=== PATIENT | male | born 1990 | race Caucasian/White ===

== ENCOUNTER 2025-09-01 16:27 | Emergency (ER) | payer OTHER ==
[~2025-09-01] VITALS: Ht 170.2 cm; Wt 61.2 kg
[2025-09-01] MEDS ORDERED: IV NORMAL SALINE 1000 ML BAG IV ONE (16:45)
[2025-09-01 17:00] VITALS: BP 139/87
[2025-09-01 17:26] VITALS: BP 139/87; O2SAT 98
== END 2025-09-01 17:27 | disposition left against medical advice (07) ==
LOC: ER 16:47
DX: F19.10 Other psychoactive substance abuse, uncomplicated (principal); F17.200 Nicotine dependence, unspecified, uncomplicated
CPT/HCPCS: A4606; A4663